=== PATIENT | female | born 1960 | race Caucasian/White ===

== ENCOUNTER 2017-06-07 09:47 | Emergency (ER) | payer OTHER ==
[~2017-06-07] VITALS: Ht 165.1 cm; Wt 49.9 kg
[~2017-06-07 09:47] MED LIST: ASPI81EC97 PO; BENTROPINE PO; DIVA500T1 PO; GEMF600T5 PO; OMEP40EC1 PO; PROPANOLOL PO; RISP3TAB19 PO; SYN.025 PO; ZOLP-159 PO; [UNRECOGNIZED DRUG - CODE] PO
[2017-06-07] MEDS ORDERED: OMEP20EC6 PO (09:57)
[2017-06-07] MEDS ORDERED: OLAN15TA1 PO (09:57)
[2017-06-07 09:58] VITALS: BP 147/83
--- NOTE | 2017-06-07 10:15 | NUR ---
checked ule and lle;no compromise circulation noted;safety measures done;all monitors in placed;will continue to monitor pt,
--- NOTE | 2017-06-07 10:24 | NUR ---
PATIENT PRESENTS TO ED WITH brought in by ems;[facility] where pt resides, called 911;pt found with lac over left eyebrow, per pt slipped and fell in the bathroom;PT IN RESTRAINT;combative , ams;hx OF schizophrenia;AWAKE AND ALERT;LUNGS CLEAR BL; HR EVEN AND REGULAR; PT DENIES ANY FEVER, CP, SOB, OR COUGH AT THIS TIME; PATIENT STATES PAIN OF 0/10 AT THIS TIME; PATIENT POSITIONED FOR COMFORT; HOB ELEVATED; BEDRAILS UP X2; BED DOWN. ALL MONITORS IN PLACED;
--- NOTE | 2017-06-07 10:34 | NUR ---
pt is restless/agiatted;keep on screaming;tried to calm pt;talked to pt;but pt still agitated;safety measures done;all monitors in placed;willcontinue to monitor pt/
--- NOTE | 2017-06-07 11:03 | NUR ---
rechecked restraint;checked circulation;no skin discoloration/skin tear noted;safety measures done;all monitors in placed;will continue to monitor pt.
--- NOTE | 2017-06-07 11:11 | NUR ---
pt sleeping;no acute distress noted;will continue to monitor pt.
--- NOTE | 2017-06-07 11:20 | NUR ---
pt screaming;"take this off"keeps on moving in bed;safety measures done;
--- NOTE | 2017-06-07 11:45 | NUR ---
TALKED TO PT;RESTRAINT WAS REMOVED;NO SKIN TEAR ;NO CIRCULATION COMPROMSED NOTED;SAFETY MEASUSRES DONE,
--- NOTE | 2017-06-07 11:46 | NUR ---
OFFERED SOME FOODS AND DRINKS REFUSED TO EAT.SAFETY MEASURES DONE;ALL MONITORS IN PALCED.
--- NOTE | 2017-06-07 11:53 | NUR ---
FAMILY MEMEBER AT BEDSIDE TO [employer] PT.
[2017-06-07 11:57] VITALS: BP 107/69
--- NOTE | 2017-06-07 11:57 | NUR ---
Patient discharged with v/s stable. Written and verbal after care instructions given and explained. Patient alert, oriented and verbalized understanding of instructions. Ambulatory with steady gait. All questions addressed prior to discharge. ID band removed. Patient advised to follow up with PMD. Rx of NOTRIN given. Patient educated on indication of medication including possible reaction and side effects. Opportunity to ask questions provided and answered.
== END 2017-06-07 11:57 | disposition home or self-care (01) ==
LOC: MED 09:47
DX: S01.81XA Laceration without foreign body of other part of head, initial encounter (principal); K21.9 Gastro-esophageal reflux disease without esophagitis; F20.9 Schizophrenia, unspecified; Z90.89 Acquired absence of other organs; Z88.8 Allergy status to other drugs, medicaments and biological substances; W19.XXXA Unspecified fall, initial encounter; Y93.89 Activity, other specified; Y92.89 Other specified places as the place of occurrence of the external cause; Y99.8 Other external cause status
CPT/HCPCS: 99283

== ENCOUNTER 2018-11-03 15:39 | Emergency (ER) | payer OTHER ==
[~2018-11-03] VITALS: Ht 162.6 cm; Wt 46.4 kg
[~2018-11-03 15:39] MED LIST changes: -BENTROPINE PO; -DIVA500T1 PO; +OLAN15TA1 PO; +OMEP20EC6 PO; -OMEP40EC1 PO; -RISP3TAB19 PO; -ZOLP-159 PO; -[UNRECOGNIZED DRUG - CODE] PO
[2018-11-03 15:58] VITALS: BP 112/69
--- NOTE | 2018-11-03 15:58 | NUR ---
TO BED # 11 AMBULATORY , REPORT GIVEN ASHLEY CONTEH
--- NOTE | 2018-11-03 16:10 | NUR ---
RT FOOT PAIN, AND SWELLING. SHE STEPPED ON A GLASS FOR 2 WEEKS, TETANUS VACC UTD. PT EAGER TO BE SEEN BY A DR. WE ADVISED THAT PT ARE SEEN BASED ON SEVERITY AND SHE WILL BE SEEN SOON POSSIBLE. VSS; PATIENT POSITIONED FOR COMFORT; HOB ELEVATED; BEDRAILS UP X1; BED DOWN. ER MD MADE AWARE OF PT STATUS.
[2018-11-03] MEDS ORDERED: traMADol 50 MG TAB PO ONE (16:50)
[2018-11-03] MEDS ORDERED: KETOROLAC 60 MG/2 ML VIAL IM ONE (16:50)
--- NOTE | 2018-11-03 18:20 | NUR ---
Patient discharged with v/s stable. Written and verbal after care instructions given and explained. Patient alert, oriented and verbalized understanding of instructions. Ambulatory with steady gait. All questions addressed prior to discharge. ID band removed. Patient advised to follow up with PMD. Rx of CLINDAMYCIN AND VOLTAREN given. Patient educated on indication of medication including possible reaction and side effects. Opportunity to ask questions provided and answered.
[2018-11-03 18:27] VITALS: BP 112/69
== END 2018-11-03 18:20 | disposition home or self-care (01) ==
LOC: MED 15:39
DX: L84 Corns and callosities (principal); F20.9 Schizophrenia, unspecified; Z79.899 Other long term (current) drug therapy; Z88.8 Allergy status to other drugs, medicaments and biological substances
CPT/HCPCS: 73630; 96372; 99283; J1885; Q0092; 29515